=== PATIENT | female | born 1935 | race Caucasian/White ===

== ENCOUNTER 2016-02-22 17:28 | Inpatient (IN) | payer MEDICARE, MEDICAID ==
[2016-02-22] MEDS ORDERED: DUONEB INH ONE (18:18)
[2016-02-22] MEDS ORDERED: SODIUM CHLORIDE 0.9% 100 ML IV ONE (20:02)
[2016-02-22] MEDS ORDERED: METHYLPRED SOD SUCC 125 MG/2 ML VIAL ONE (20:02)
[2016-02-22] MEDS ORDERED: CEFTRIAXONE 1 GM VIAL ONE (20:02)
[2016-02-22] MEDS: SALINE FLUSH 10 ML FLUSH SCH (20:35)
[2016-02-22] MEDS ORDERED: GLUCAGON 1 MG VIAL IM PRN (20:35)
[2016-02-22] MEDS ORDERED: DEXTROSE 50% SYRINGE 50 ML IV PRN (20:35)
[2016-02-22] MEDS ORDERED: SALINE FLUSH 10 ML FLUSH PRN (20:35)
[2016-02-22 23:00] VITALS: BP_SYST 117; BP_SYST 131; RESP 18; TEMP 99; Wt 106.6 kg
[2016-02-22] MEDS: SODIUM CHLORIDE 0.9% 1,000 ML IV SCH (23:14)
[2016-02-22 23:39] VITALS: RESP 24
[2016-02-23 02:59] VITALS: BP_SYST 120; RESP 20; TEMP 97.5
[2016-02-23] MEDS: SODIUM CHLORIDE 0.9% FLUSH BAG 500 ML IV SCH (06:00)
[2016-02-23 07:25] VITALS: BP_SYST 118; RESP 18; TEMP 97.5
[2016-02-23] MEDS: SALINE FLUSH 10 ML FLUSH SCH ×2 (08:00→20:00)
[2016-02-23] MEDS: CEFTRIAXONE 1 GM in SODIUM CHLORIDE 0.9% 50 ML IV SCH (08:59)
[2016-02-23] MEDS: SODIUM CHLORIDE 0.9% 1,000 ML IV SCH ×2 (09:00→18:59)
[2016-02-23] MEDS ORDERED: OXYBUTYNIN XL 5 MG TAB PO SCH (09:00)
[2016-02-23] MEDS ORDERED: ACETAMINOPHEN 325 MG TAB PO PRN (10:25)
[2016-02-23] MEDS ORDERED: BISACODYL 10 MG SUPP RECTAL PRN (10:25)
[2016-02-23] MEDS: FLUTICASONE 0.05% NA BTL NARE EACH SCH (11:08)
[2016-02-23] MEDS: LEVEMIR INSULIN SUBQ SCH ×2 (11:08→20:13)
[2016-02-23 11:25] VITALS: BP_SYST 113; RESP 16; TEMP 98.6
[2016-02-23 14:50] VITALS: BP_SYST 124; RESP 18; TEMP 97.9
[2016-02-23 19:22] VITALS: BP_SYST 130; RESP 18; TEMP 97.8
[2016-02-23] MEDS: MONTELUKAST 10 MG TAB PO SCH (20:12)
[2016-02-23 22:59] VITALS: BP_SYST 127; RESP 18; TEMP 97.3
[2016-02-24 03:12] VITALS: BP_SYST 110; RESP 18; TEMP 98
[2016-02-24] MEDS: SODIUM CHLORIDE 0.9% 1,000 ML IV SCH (05:05)
[2016-02-24] MEDS: SODIUM CHLORIDE 0.9% FLUSH BAG 500 ML IV SCH (06:00)
[2016-02-24 07:16] VITALS: BP_SYST 141; RESP 18; TEMP 97.9
[2016-02-24] MEDS: LEVEMIR INSULIN SUBQ SCH ×2 (07:57→21:00)
[2016-02-24] MEDS: SALINE FLUSH 10 ML FLUSH SCH ×2 (07:57→21:03)
[2016-02-24] MEDS: CEFTRIAXONE 1 GM in SODIUM CHLORIDE 0.9% 50 ML IV SCH (07:58)
[2016-02-24] MEDS: FLUTICASONE 0.05% NA BTL NARE EACH SCH (07:58)
[2016-02-24 11:12] VITALS: BP_SYST 123; RESP 18; TEMP 98.1
[2016-02-24 14:45] VITALS: BP_SYST 131; RESP 18; TEMP 98
[2016-02-24 19:22] VITALS: BP_SYST 125; RESP 20; TEMP 97.8
[2016-02-24] MEDS: MONTELUKAST 10 MG TAB PO SCH (21:02)
[2016-02-24 23:02] VITALS: BP_SYST 122; RESP 18; TEMP 97.5
[2016-02-25] MEDS: SODIUM CHLORIDE 0.9% 1,000 ML IV SCH (02:22)
[2016-02-25 03:09] VITALS: BP_SYST 120; RESP 18; TEMP 97.9
[2016-02-25] MEDS: SODIUM CHLORIDE 0.9% FLUSH BAG 500 ML IV SCH (05:10)
[2016-02-25 07:33] VITALS: BP_SYST 104; RESP 15; TEMP 98
[2016-02-25] MEDS: SALINE FLUSH 10 ML FLUSH SCH (08:00)
[2016-02-25] MEDS: FLUTICASONE 0.05% NA BTL NARE EACH SCH (08:04)
[2016-02-25] MEDS: CEFTRIAXONE 1 GM in SODIUM CHLORIDE 0.9% 50 ML IV SCH (08:04)
[2016-02-25] MEDS: LEVEMIR INSULIN SUBQ SCH (09:00)
[2016-02-25 11:22] VITALS: BP_SYST 131; RESP 16; TEMP 98.2
[2016-02-25 14:33] VITALS: BP_SYST 131; RESP 16; TEMP 98.2
[2016-02-25 15:12] VITALS: BP_SYST 128; TEMP 98.8
== END 2016-02-25 16:14 | DRG 690 ==
LOC: ENRESERVTM → ENRESERVDT → CANRESERV → ER 17:28 → EMR 20:31 → 5THE 23:28 → OBSVTOIN 02-23 21:20
PROVIDERS: ADMIT Family Medicine; ATTEND Family Medicine
DX: N39.0 Urinary tract infection, site not specified (principal); N17.9 Acute kidney failure, unspecified; I50.32 Chronic diastolic (congestive) heart failure; G30.9 Alzheimer's disease, unspecified; J44.9 Chronic obstructive pulmonary disease, unspecified; B96.4 Proteus (mirabilis) (morganii) as the cause of diseases classified elsewhere; F02.80 Dementia in other diseases classified elsewhere, unspecified severity, without behavioral disturbance, psychotic disturbance, mood disturbance, and anxiety; I10 Essential (primary) hypertension; E11.9 Type 2 diabetes mellitus without complications; E86.1 Hypovolemia; R32 Unspecified urinary incontinence; E66.9 Obesity, unspecified; Z87.11 Personal history of peptic ulcer disease; Z79.4 Long term (current) use of insulin
CPT/HCPCS: 31720; 36415; 36600; 70450; 71010; 80051; 80053; 81001; 82330; 82553; 82803; 82947; 83605; 83880; 84484; 85025; 85379; 86141; 87040; 87077; 87088; 87186; 87804; 93005; 94640; 94799; 96374; 96375; 99219; 99233